=== PATIENT | female | born 1965 | race Native Hawaiian/Other Pacific Islander ===

== ENCOUNTER 2016-05-29 10:58 | Emergency (ER) | payer OTHER ==
[~2016-05-29] VITALS: Ht 165.1 cm; Wt 63.5 kg
[2016-05-29 11:44] LABS: PLATELET COUNT 316 K/uL (152-353)
[2016-05-29 11:56] LABS: POTASSIUM 3.7 mmol/L (3.6-5.2); SODIUM 137 mmol/L (136-145)
[2016-05-29 14:38] VITALS: BP 115/70; TEMP 98
== END 2016-05-29 12:03 | disposition home or self-care (01) ==
LOC: ED 10:58
DX: R91.8 Other nonspecific abnormal finding of lung field (principal); C34.91 Malignant neoplasm of unspecified part of right bronchus or lung
CPT/HCPCS: 80053; 85027; 99284; Q9963

== ENCOUNTER 2016-07-20 16:58 | Emergency (ER) | payer OTHER ==
[~2016-07-20] VITALS: Ht 152.4 cm; Wt 67.6 kg
[2016-07-20 17:20] VITALS: TEMP 98.3
[2016-07-20] MEDS ORDERED: ALBU90AE13 INH (17:51)
[2016-07-20] MEDS ORDERED: BENZONATATE100 MG PO (17:52)
[2016-07-20 20:44] LABS: PLATELET COUNT 374 K/uL (152-353)
[2016-07-20 20:49] LABS: POTASSIUM 3.8 mmol/L (3.6-5.2); SODIUM 139 mmol/L (136-145)
[2016-07-20 20:57] LABS: PARTIAL THROMBOPLASTIN TIME 23.6 SECONDS (24.5-33.6)
[2016-07-20 21:20] VITALS: BP 110/71
== END 2016-07-20 21:25 | disposition home or self-care (01) ==
LOC: ED 16:58
DX: R04.2 Hemoptysis (principal); C34.90 Malignant neoplasm of unspecified part of unspecified bronchus or lung
CPT/HCPCS: 36415; 80053; 85027; 85610; 85730; 99283

== ENCOUNTER 2017-02-09 00:29 | Emergency (ER) | payer OTHER ==
[~2017-02-09] VITALS: Ht 165.1 cm; Wt 72.6 kg
[~2017-02-09 00:29] MED LIST: ALBU90AE13 INH; BENZONATATE100 MG PO
[2017-02-09 01:51] VITALS: BP 124/72; TEMP 98.1
== END 2017-02-09 01:51 | disposition home or self-care (01) ==
LOC: ED 00:29
DX: F41.8 Other specified anxiety disorders (principal); R06.4 Hyperventilation
CPT/HCPCS: 96372; 99282; J2060

== ENCOUNTER 2017-02-21 13:32 | Emergency (ER) | payer OTHER ==
[~2017-02-21] VITALS: Ht 162.6 cm; Wt 76.2 kg
[2017-02-21 13:35] VITALS: TEMP 98.7
[2017-02-21 14:03] VITALS: BP 116/75
== END 2017-02-21 14:19 | disposition home or self-care (01) ==
LOC: ED 13:32
DX: R21 Rash and other nonspecific skin eruption (principal)
CPT/HCPCS: 96372; 99282; J2930

== ENCOUNTER 2019-06-06 10:17 | Emergency (ER) | payer OTHER ==
[~2019-06-06] VITALS: Ht 167.6 cm; Wt 79.4 kg
[2019-06-06 10:30] VITALS: TEMP 97.7
[2019-06-06 13:17] VITALS: BP 138/70
== END 2019-06-06 13:17 | disposition home or self-care (01) ==
LOC: ED 10:17
DX: M62.838 Other muscle spasm (principal)
CPT/HCPCS: 99283

== ENCOUNTER 2019-07-28 10:40 | Emergency (ER) | payer OTHER ==
[~2019-07-28] VITALS: Ht 167.6 cm; Wt 77.1 kg
[2019-07-28 10:41] VITALS: TEMP 97.5
[2019-07-28 11:02] LABS: PLATELET COUNT 282 K/uL (152-353)
[2019-07-28 11:09] LABS: SODIUM 135 mmol/L (136-145)
[2019-07-28 11:17] LABS: PARTIAL THROMBOPLASTIN TIME 29.4 SECONDS (24.5-33.6)
[2019-07-28 15:14] VITALS: BP 114/60
== END 2019-07-28 15:14 | disposition home or self-care (01) ==
LOC: ED 10:40
PROVIDERS: Hospitalist
DX: J44.1 Chronic obstructive pulmonary disease with (acute) exacerbation (principal); C34.90 Malignant neoplasm of unspecified part of unspecified bronchus or lung; F17.210 Nicotine dependence, cigarettes, uncomplicated
CPT/HCPCS: 36415; 36600; 80053; 82550; 82553; 82805; 83880; 84484; 85027; 85379; 85610; 85730; 87040; 87502; 87635; 87651; 93005; 94664; 96374; 96375; 99284; G2023; J1885; J2930; Q9963; U0002

== ENCOUNTER 2020-02-05 11:39 | Emergency (ER) | payer OTHER ==
[~2020-02-05] VITALS: Ht 167.6 cm; Wt 80.3 kg
[2020-02-05 11:39] VITALS: TEMP 99.1
[2020-02-05 13:35] VITALS: BP 109/76
== END 2020-02-05 13:47 | disposition home or self-care (01) ==
LOC: ED 11:39
DX: M54.5 Low back pain (principal); M79.18 Myalgia, other site; W01.198A Fall on same level from slipping, tripping and stumbling with subsequent striking against other object, initial encounter; Y92.098 Other place in other non-institutional residence as the place of occurrence of the external cause
CPT/HCPCS: 96372; 99283; J1885

== ENCOUNTER 2020-03-01 17:22 | Emergency (ER) | payer OTHER ==
[~2020-03-01] VITALS: Ht 167.6 cm; Wt 80.3 kg
[2020-03-01 18:38] LABS: PLATELET COUNT 433 K/uL (152-353)
[2020-03-01 18:56] LABS: POTASSIUM 3.2 mmol/L (3.6-5.2)
[2020-03-01 22:58] VITALS: BP 95/47; TEMP 98.9
== END 2020-03-01 23:05 | disposition short-term general hospital (02) ==
LOC: ED 17:22
PROVIDERS: Family Medicine
DX: C34.91 Malignant neoplasm of unspecified part of right bronchus or lung (principal); D64.89 Other specified anemias; R53.1 Weakness; Z20.828 Contact with and (suspected) exposure to other viral communicable diseases
CPT/HCPCS: 36415; 80053; 81000; 82550; 85027; 87502; 87635; 96360; 99285; U0003

== ENCOUNTER 2020-09-10 08:52 | Emergency (ER) | payer OTHER ==
[~2020-09-10] VITALS: Ht 165.1 cm; Wt 71.7 kg
[2020-09-10 08:53] VITALS: TEMP 97
[2020-09-10 10:13] LABS: PLATELET COUNT 223 K/uL (152-353)
[2020-09-10 10:56] LABS: POTASSIUM 3.6 mmol/L (3.6-5.2); SODIUM 140 mmol/L (136-145)
[2020-09-10 12:17] VITALS: BP 101/68
== END 2020-09-10 12:17 | disposition home or self-care (01) ==
LOC: ED 08:52
PROVIDERS: Family Medicine
DX: R53.1 Weakness (principal); C34.11 Malignant neoplasm of upper lobe, right bronchus or lung; F17.210 Nicotine dependence, cigarettes, uncomplicated; T45.1X5A Adverse effect of antineoplastic and immunosuppressive drugs, initial encounter; Y92.89 Other specified places as the place of occurrence of the external cause
CPT/HCPCS: 36591; 80053; 82550; 82553; 83605; 84484; 85007; 85027; 87040; 93005; 96374; 99284; J1642